=== PATIENT | female | born 1970 | race American Indian/Alaskan Native ===

== ENCOUNTER 2017-03-03 23:25 | Emergency (ER) | payer OTHER ==
[2017-03-04 00:33] LABS: Bilirubin,Urine NEG (Negative); Blood,Urine SM (Negative); Ketones,Urine NEG (Negative); Leukocyte Esterase,Urine TR (Negative); Mucus,Urine FEW /HPF; Nitrite,Urine NEG (Negative); Protein,Urine <15 mg/dL mg/dL (Negative); Urobilinogen,Urine < 2.0 mg/dL (<2.0)
[2017-03-04 00:46] LABS: Basophils % (Auto) 0.5 % (0.0-1.8); Eosinophils % (Auto) 0.9 % (0.0-4.3); Mean Corpuscular HGB Conc 33 % (30-34); Mean Corpuscular Hemoglobin 30 pg (28-32); Mean Corpuscular Volume 91 fl (79-97); Platelet Count 224 K/mm3 (140-440); Red Blood Count 3.65 M/mm3 (3.65-5.03); Red Cell Distribution Width 15.3 % (13.2-15.2); White Blood Count 5.5 K/mm3 (4.5-11.0)
[2017-03-04 01:33] LABS: Alanine Aminotransferase 12 units/L (7-56); Albumin 4.1 g/dL (3.9-5); Albumin/Globulin Ratio 1.4 %; Alkaline Phosphatase 47 units/L (35-129); Anion Gap 18 mmol/L; Bilirubin,Total 0.2 mg/dL (0.1-1.2); Blood Urea Nitrogen 12 mg/dL (7-17); Calcium 8.9 mg/dL (8.4-10.2); Carbon Dioxide 24 mmol/L (22-30); Chloride 102.8 mmol/L (98-107); Glucose 88 mg/dL (65-100); Lipase 23 units/L (13-60); Potassium 3.6 mmol/L (3.6-5.0); Sodium 141 mmol/L (137-145); Total Protein 7.1 g/dL (6.3-8.2)
[2017-03-04] MEDS ORDERED: PEPCID IV ONE (02:10)
[2017-03-04] MEDS ORDERED: BENADRYL IV ONE (02:12)
[2017-03-04] MEDS ORDERED: REGLAN IV ONE (02:12)
[2017-03-04] MEDS ORDERED: MORPHINE IV ONE (02:12)
--- NOTE | 2017-03-04 02:14 | Emergency Department Report ---
ED Abdominal Pain HPI - General Chief Complaint: Abdominal Pain Stated Complaint: ABD PAIN Time Seen by Provider: 03/04/17 01:43 Source: patient Mode of arrival: Ambulatory Limitations: No Limitations - History of Present Illness Initial Comments: Patient is a 46 year female with a history of a gastric sleeve 2 years ago presenting with multiple complaints. Patient reports headaches, nausea at times , intermittent in epigastric pain, intermittent swelling of her extremities. Out of all of her complaints patient reports that intermittent swelling is what brought her to the ER today. Patient reports she is taking her mother's "water pill" medication in the past which gave her relief.She also reports she has been taking multiple doses of Zantac, Gas-X for relief. Otherwise patient has no other complaints. Otherwise no fevers, chills, vomiting, shortness of breath , chest pain, travel, trauma, or sick contacts. Patient reports she has not followed up with her bariatric surgeon in a long time. Severity scale (0 -10): 7 - Related Data Home Medications Medication Instructions Recorded Confirmed Last Taken No Known Home Medications [No 03/04/17 03/04/17 Unknown Reported Home Medications] Allergies Allergy/AdvReac Type Severity Reaction Status Date / Time No Known Allergies Allergy Unverified 03/04/17 00:00 ED Review of Systems ROS: Stated complaint: ABD PAIN Other details as noted in HPI Comment: All other systems reviewed and negative ED Past Medical Hx - Past Medical History Hx Hypertension: Yes - Surgical History Hx Cholecystectomy: Yes Additional Surgical History: Gastric sleeve, , Tubal ligation, - Social History Smoking Status: Current Every Day Smoker Substance Use Type: Alcohol - Medications Home Medications: Home Medications Medication Instructions Recorded Confirmed Last Taken Type No Known Home Medications [No 03/04/17 03/04/17 Unknown History Reported Home Medications] ED Physical Exam - General Limitations: No Limitations General appearance: alert, in no apparent distress - Head Head exam: Present: atraumatic, normocephalic - Eye Eye exam: Present: normal appearance - ENT ENT exam: Present: mucous membranes moist - Neck Neck exam: Present: normal inspection - Respiratory Respiratory exam: Present: normal lung sounds bilaterally. Absent: respiratory distress - Cardiovascular Cardiovascular Exam: Present: regular rate, normal rhythm. Absent: systolic murmur, diastolic murmur, rubs, gallop - GI/Abdominal GI/Abdominal exam: Present: soft, tenderness, normal bowel sounds. Absent: distended, guarding, rebound, rigid - Extremities Exam Extremities exam: Present: normal inspection - Back Exam Back exam: Present: normal inspection - Neurological Exam Neurological exam: Present: alert, oriented X3 - Psychiatric Psychiatric exam: Present: normal affect, normal mood - Skin Skin exam: Present: warm, dry, intact, normal color. Absent: rash ED Course Vital Signs 03/03/17 03/04/17 03/04/17 23:45 00:28 00:30 Temperature 98.1 F Pulse Rate 56 L 48 L Respiratory 20 19 Rate Blood Pressure 174/102 135/86 Blood Pressure 174/102 [Left] O2 Sat by Pulse 99 100 99 Oximetry 03/04/17 03/04/17 03/04/17 00:35 00:41 00:45 Temperature Pulse Rate 44 L 46 L 50 L Respiratory 17 12 13 Rate Blood Pressure 135/86 135/86 135/86 Blood Pressure [Left] O2 Sat by Pulse 99 99 98 Oximetry 03/04/17 03/04/17 03/04/17 00:48 00:51 01:07 Temperature Pulse Rate 46 L 46 L Respiratory 16 16 18 Rate Blood Pressure 135/81 135/81 Blood Pressure [Left] O2 Sat by Pulse 99 99 Oximetry 03/04/17 03/04/17 03/04/17 01:11 01:15 01:21 Temperature Pulse Rate 46 L 46 L 45 L Respiratory 12 10 L 13 Rate Blood Pressure 135/81 135/81 148/77 Blood Pressure [Left] O2 Sat by Pulse 99 99 99 Oximetry 03/04/17 03/04/17 03/04/17 01:25 01:30 01:35 Temperature Pulse Rate 45 L 52 L 47 L Respiratory 12 15 16 Rate Blood Pressure 148/77 135/85 135/85 Blood Pressure [Left] O2 Sat by Pulse 99 99 99 Oximetry 03/04/17 03/04/17 03/04/17 01:41 01:45 01:51 Temperature Pulse Rate 44 L 51 L 50 L Respiratory 8 L 15 15 Rate Blood Pressure 135/81 135/81 106/55 Blood Pressure [Left] O2 Sat by Pulse 98 98 98 Oximetry 03/04/17 03/04/17 03/04/17 01:55 02:00 02:05 Temperature Pulse Rate 51 L 50 L 51 L Respiratory 14 15 14 Rate Blood Pressure 106/55 102/52 102/52 Blood Pressure [Left] O2 Sat by Pulse 98 99 99 Oximetry 03/04/17 03/04/17 03/04/17 02:11 02:15 02:21 Temperature Pulse Rate 46 L 52 L 56 L Respiratory 16 17 19 Rate Blood Pressure 102/52 102/52 114/62 Blood Pressure [Left] O2 Sat by Pulse 99 97 100 Oximetry 03/04/17 02:25 Temperature Pulse Rate 61 Respiratory 19 Rate Blood Pressure 114/62 Blood Pressure [Left] O2 Sat by Pulse 96 Oximetry ED Medical Decision Making - Lab Data Result diagrams: 03/04/17 00:36 03/04/17 00:36 - EKG Data -: EKG Interpreted by Me ([id number]) EKG shows normal: sinus rhythm, axis (normal), intervals (QTC:451ms ), ST-T waves ((-)ST T changes, No stemi) Rate: bradycardia (49 bpm) - Radiology Data Radiology results: report reviewed ABD xray: concern for air fluid levels, ordered CT a/p CT a/p: No acute intra-abdominal pathology Critical care attestation.: If time is entered above; I have spent that time in minutes in the direct care of this critically ill patient, excluding procedure time. ED Disposition Clinical Impression: Abdominal pain, Edema Disposition: DISCHARGED TO HOME OR SELFCARE Is pt being admited?: No Condition: Stable Instructions: Abdominal Pain (ED), Leg Edema (ED) Referrals: PRIMARY CARE, [Primary Care Provider] - 3-5 Days
[2017-03-04] MEDS ORDERED: BENTYL PO ONE (02:17)
--- NOTE | 2017-03-04 03:59 | XRay Report ---
FINAL REPORT PROCEDURE: XR ABDOMEN 2V TECHNIQUE: Abdominal series, including supine and upright AP views. HISTORY: abdp ain COMPARISON: No prior studies are available for comparison. FINDINGS: Bowel gas pattern:Nonobstructive . Masses or calcifications:There has been previous cholecystectomy. Bony structures:No significant abnormality . Pneumoperitoneum:None . Other:No significant findings . IMPRESSION: No acute abnormality.
--- NOTE | 2017-03-04 05:09 | Cat Scan Report ---
FINAL REPORT PROCEDURE: CT ABDOMEN PELVIS W CON TECHNIQUE: Computerized axial tomography of the abdomen and pelvis was performed after the IV injection of iodinated nonionic contrast. HISTORY: epigastric pain , swelling both lower legs suzette r/o obstruction COMPARISON: No prior studies are available for comparison. FINDINGS: Visualized lower thorax: No significant abnormality. Liver: Normal size and attenuation. Spleen: Normal size and attenuation. Gallbladder and biliary system: The gallbladder is absent. No dilatation of the biliary ductal system.. Pancreas: Normal. Adrenals: Normal. Kidneys: The stomach is normal. No hydronephrosis. No renal stones or masses. GI tract: The stomach is normal. The small bowel has a normal caliber. No obstruction, ileus or enteritis. The cecum and colon are normal.. Lymph nodes and mesentery: Normal. Vasculature: Normal. Bladder: Normal. Reproductive organs: The uterus is normal. There is a 2 centimeters cyst on the right ovary.. Peritoneum: No free fluid. Musculoskeletal structures: No significant abnormality. Other: None. IMPRESSION: No evidence of intestinal or urinary tract obstruction. No ileus or enteritis. Previous cholecystectomy.
[2017-03-04 05:19] VITALS: BP 136/81
--- NOTE | 2017-03-04 07:27 | XRay Report ---
CHEST 2 VIEWS INDICATION: Difficulty breathing. COMPARISON: None similar at this institution. FINDINGS: PA and lateral chest radiographs demonstrate borderline cardiomegaly. Normal mediastinal and hilar contours. Clear lungs. Mild right hemidiaphragmatic scalloping and focal anterior eventration. Multiple upper abdominal surgical clips. Upper thoracic levoscoliosis apex about T3. Mild multilevel thoracic spine degenerative spurring. CONCLUSION: No acute chest process with various incidental findings, as above. Thank you for the opportunity to participate in this patient's care.
== END 2017-03-04 05:38 | disposition home or self-care (01) ==
LOC: ED 23:25
DX: R10.13 Epigastric pain (principal); R60.9 Edema, unspecified; I10 Essential (primary) hypertension; F17.200 Nicotine dependence, unspecified, uncomplicated; Z90.49 Acquired absence of other specified parts of digestive tract; Z98.51 Tubal ligation status
CPT/HCPCS: 36415; 71020; 74020; 74177; 80053; 81001; 83690; 83880; 85025; 93005; 93010; 96374; 96375; 99285; J1200; J2270; J2765; Q9967

== ENCOUNTER 2019-08-20 13:49 | Emergency (ER) | payer SELFPAY ==
[2019-08-20 14:28] LABS: Basophils % (Auto) 0.3 % (0.0-1.8); Eosinophils % (Auto) 0.7 % (0.0-4.3); Hematocrit 37.6 % (30.3-42.9); Hemoglobin 12.5 gm/dl (10.1-14.3); Lymphocytes # (Auto) 3.2 K/mm3 (1.2-5.4); Lymphocytes % (Auto) 46.2 % (13.4-35.0); Mean Corpuscular HGB Conc 33 % (30-34); Mean Corpuscular Volume 90 fl (79-97); Monocytes # (Auto) 0.6 K/mm3 (0.0-0.8); Monocytes % (Auto) 8.8 % (0.0-7.3); Platelet Count 263 K/mm3 (140-440); Red Blood Count 4.18 M/mm3 (3.65-5.03); Red Cell Distribution Width 14.8 % (13.2-15.2)
[2019-08-20 14:39] LABS: BUN/Creatinine Ratio 26; Blood Urea Nitrogen 13 mg/dL (7-17); Calcium 9.1 mg/dL (8.4-10.2); Hemolysis Index 13
--- NOTE | 2019-08-20 15:22 | Emergency Department Report ---
ED General Adult HPI - General Chief complaint: Overdose Stated complaint: OVERDOSE Time Seen by Provider: 08/20/19 14:52 Source: patient Mode of arrival: Ambulatory Limitations: Altered Mental Status - History of Present Illness Initial comments: The patient presents to the emergency department for an intentional overdose. Patient has a history of bipolar and PTSD and states she is no longer taking medications. Patient states that she is going through a lot currently and is depressed. Patient states on Tuesday she took 15 Advil PMs in an attempt to kill herself. Patient states after taking the medication she controlled from [facility] to [facility] to visit her great-grandmother's grave site. Patient states she's been living out of her car since that time and this morning decided to take 5 more tablets of Advil PM. Patient states that she called the crisis center and had her spouse come to pick her up from [place], [place]. -: Gradual Severity scale (0 -10): 0 Consistency: constant Improves with: none Worsens with: none Associated Symptoms: denies other symptoms Treatments Prior to Arrival: none - Related Data Home Medications Medication Instructions Recorded Confirmed Last Taken No Known Home Medications [No 03/04/17 08/20/19 Unknown Reported Home Medications] Allergies Allergy/AdvReac Type Severity Reaction Status Date / Time No Known Allergies Allergy Unverified 03/04/17 00:00 ED Review of Systems ROS: Stated complaint: OVERDOSE Other details as noted in HPI Comment: All other systems reviewed and negative Constitutional: denies: chills, fever Eyes: denies: eye pain, eye discharge, vision change ENT: denies: ear pain, throat pain Respiratory: denies: cough, shortness of breath, wheezing Cardiovascular: denies: chest pain, palpitations Endocrine: no symptoms reported Gastrointestinal: denies: abdominal pain, nausea, diarrhea Genitourinary: denies: urgency, dysuria, discharge Musculoskeletal: denies: back pain, joint swelling, arthralgia Skin: denies: rash, lesions Neurological: denies: headache, weakness, paresthesias Psychiatric: suicidal thoughts. denies: anxiety, depression, auditory hallucinations, visual hallucinations, homicidal thoughts Hematological/Lymphatic: denies: easy bleeding, easy bruising ED Past Medical Hx - Past Medical History Previous Medical History?: Yes Hx Hypertension: Yes - Surgical History Past Surgical History?: Yes Hx Cholecystectomy: Yes Additional Surgical History: Gastric sleeve, , Tubal ligation, - Social History Smoking Status: Current Every Day Smoker Substance Use Type: Alcohol - Medications Home Medications: Home Medications Medication Instructions Recorded Confirmed Last Taken Type No Known Home Medications [No 03/04/17 08/20/19 Unknown History Reported Home Medications] ED Physical Exam - General Limitations: Altered Mental Status General appearance: alert, in no apparent distress - Head Head exam: Present: atraumatic, normocephalic - Eye Eye exam: Present: normal appearance, PERRL, EOMI - ENT ENT exam: Present: mucous membranes moist - Neck Neck exam: Present: normal inspection - Respiratory Respiratory exam: Present: normal lung sounds bilaterally. Absent: respiratory distress - Cardiovascular Cardiovascular Exam: Present: regular rate, normal rhythm. Absent: systolic murmur, diastolic murmur, rubs, gallop - GI/Abdominal GI/Abdominal exam: Present: soft, normal bowel sounds. Absent: distended, tenderness - Extremities Exam Extremities exam: Present: normal inspection - Back Exam Back exam: Present: normal inspection - Neurological Exam Neurological exam: Present: alert, oriented X3, CN II-XII intact. Absent: motor sensory deficit - Psychiatric Psychiatric exam: Present: normal affect, normal mood, depressed, suicidal ideation. Absent: manic, homicidal ideation - Skin Skin exam: Present: warm, dry, intact, normal color. Absent: rash ED Course Vital Signs 08/20/19 08/20/19 08/20/19 13:59 14:08 14:15 Temperature 98.7 F Pulse Rate 76 83 Respiratory 17 18 Rate Blood Pressure 156/69 Blood Pressure 184/102 [Left] O2 Sat by Pulse 97 98 99 Oximetry 08/20/19 08/20/19 08/20/19 14:18 14:30 14:45 Temperature Pulse Rate 57 L 57 L Respiratory 10 L 18 Rate Blood Pressure 202/112 111/59 93/54 Blood Pressure [Left] O2 Sat by Pulse 97 99 96 Oximetry 08/20/19 08/20/19 08/20/19 15:00 15:15 15:31 Temperature Pulse Rate 54 L 56 L 56 L Respiratory 18 19 20 Rate Blood Pressure 100/55 114/61 107/64 Blood Pressure [Left] O2 Sat by Pulse 96 98 99 Oximetry 08/20/19 08/20/19 08/20/19 16:35 18:40 21:05 Temperature Pulse Rate 55 L 74 60 Respiratory 19 17 20 Rate Blood Pressure Blood Pressure 145/90 137/62 124/58 [Left] O2 Sat by Pulse 100 100 98 Oximetry 08/20/19 22:30 Temperature Pulse Rate 56 L Respiratory 17 Rate Blood Pressure Blood Pressure 133/77 [Left] O2 Sat by Pulse 100 Oximetry ED Medical Decision Making - Lab Data Result diagrams: 08/20/19 14:07 08/20/19 14:07 Lab Results 08/20/19 08/20/19 08/20/19 Range/Units 14:07 14:07 14:07 WBC (4.5-11.0) K/mm3 RBC (3.65-5.03) M/mm3 Hgb (10.1-14.3) gm/dl Hct (30.3-42.9) % MCV (79-97) fl MCH (28-32) pg MCHC (30-34) % RDW (13.2-15.2) % Plt Count (140-440) K/mm3 Lymph % (Auto) (13.4-35.0) % [place] % (Auto) (0.0-7.3) % Eos % (Auto) (0.0-4.3) % Baso % (Auto) (0.0-1.8) % Lymph # (1.2-5.4) K/mm3 [place] # (0.0-0.8) K/mm3 Eos # (0.0-0.4) K/mm3 Baso # (0.0-0.1) K/mm3 Seg Neutrophils % (40.0-70.0) % Seg Neutrophils # (1.8-7.7) K/mm3 Sodium 139 (137-145) mmol/L Potassium 3.6 (3.6-5.0) mmol/L Chloride 103.9 (98-107) mmol/L Carbon Dioxide 20 L (22-30) mmol/L Anion Gap 19 mmol/L BUN 13 (7-17) mg/dL Creatinine 0.5 L (0.7-1.2) mg/dL Estimated GFR > 60 ml/min BUN/Creatinine Ratio 26 % Glucose 102 H (65-100) mg/dL Calcium 9.1 (8.4-10.2) mg/dL Urine Color (Yellow) Urine Turbidity (Clear) Urine pH (5.0-7.0) Ur Specific [place] (1.003-1.030) Urine Protein (Negative) mg/dL Urine Glucose (UA) (Negative) mg/dL Urine Ketones (Negative) mg/dL Urine Blood (Negative) Urine Nitrite (Negative) Urine Bilirubin (Negative) Urine Urobilinogen (<2.0) mg/dL Ur Leukocyte Esterase (Negative) Urine WBC (Auto) (0.0-6.0) /HPF Urine RBC (Auto) (0.0-6.0) /HPF U Epithel Cells (Auto) (0-13.0) /HPF Urine Mucus /HPF Salicylates < 0.3 L (2.8-20.0) mg/dL Urine Opiates Screen Urine Methadone Screen Acetaminophen < 5.0 L (10.0-30.0) ug/mL Ur Barbiturates Screen Ur Phencyclidine Scrn Ur Amphetamines Screen U Benzodiazepines Scrn Urine Cocaine Screen U Marijuana (THC) Screen Drugs of Abuse Note Plasma/Serum Alcohol (0-0.07) % 08/20/19 08/20/19 08/20/19 Range/Units 14:07 14:07 Unknown WBC 6.8 (4.5-11.0) K/mm3 RBC 4.18 (3.65-5.03) M/mm3 Hgb 12.5 (10.1-14.3) gm/dl Hct 37.6 (30.3-42.9) % MCV 90 (79-97) fl MCH 30 (28-32) pg MCHC 33 (30-34) % RDW 14.8 (13.2-15.2) % Plt Count 263 (140-440) K/mm3 Lymph % (Auto) 46.2 H (13.4-35.0) % [place] % (Auto) 8.8 H (0.0-7.3) % Eos % (Auto) 0.7 (0.0-4.3) % Baso % (Auto) 0.3 (0.0-1.8) % Lymph # 3.2 (1.2-5.4) K/mm3 [place] # 0.6 (0.0-0.8) K/mm3 Eos # 0.0 (0.0-0.4) K/mm3 Baso # 0.0 (0.0-0.1) K/mm3 Seg Neutrophils % 44.0 (40.0-70.0) % Seg Neutrophils # 3.0 (1.8-7.7) K/mm3 Sodium (137-145) mmol/L Potassium (3.6-5.0) mmol/L Chloride (98-107) mmol/L Carbon Dioxide (22-30) mmol/L Anion Gap mmol/L BUN (7-17) mg/dL Creatinine (0.7-1.2) mg/dL Estimated GFR ml/min BUN/Creatinine Ratio % Glucose (65-100) mg/dL Calcium (8.4-10.2) mg/dL Urine Color Yellow (Yellow) Urine Turbidity Slightly-cloudy (Clear) Urine pH 5.0 (5.0-7.0) Ur Specific [place] 1.034 H (1.003-1.030) Urine Protein <15 mg/dl (Negative) mg/dL Urine Glucose (UA) Neg (Negative) mg/dL Urine Ketones Neg (Negative) mg/dL Urine Blood Neg (Negative) Urine Nitrite Neg (Negative) Urine Bilirubin Neg (Negative) Urine Urobilinogen < 2.0 (<2.0) mg/dL Ur Leukocyte Esterase Neg (Negative) Urine WBC (Auto) 1.0 (0.0-6.0) /HPF Urine RBC (Auto) 7.0 (0.0-6.0) /HPF U Epithel Cells (Auto) 4.0 (0-13.0) /HPF Urine Mucus 3+ /HPF Salicylates (2.8-20.0) mg/dL Urine Opiates Screen Urine Methadone Screen Acetaminophen (10.0-30.0) ug/mL Ur Barbiturates Screen Ur Phencyclidine Scrn Ur Amphetamines Screen U Benzodiazepines Scrn Urine Cocaine Screen U Marijuana (THC) Screen Drugs of Abuse Note Plasma/Serum Alcohol < 0.01 (0-0.07) % 08/20/19 Range/Units Unknown WBC (4.5-11.0) K/mm3 RBC (3.65-5.03) M/mm3 Hgb (10.1-14.3) gm/dl Hct (30.3-42.9) % MCV (79-97) fl MCH (28-32) pg MCHC (30-34) % RDW (13.2-15.2) % Plt Count (140-440) K/mm3 Lymph % (Auto) (13.4-35.0) % [place] % (Auto) (0.0-7.3) % Eos % (Auto) (0.0-4.3) % Baso % (Auto) (0.0-1.8) % Lymph # (1.2-5.4) K/mm3 [place] # (0.0-0.8) K/mm3 Eos # (0.0-0.4) K/mm3 Baso # (0.0-0.1) K/mm3 Seg Neutrophils % (40.0-70.0) % Seg Neutrophils # (1.8-7.7) K/mm3 Sodium (137-145) mmol/L Potassium (3.6-5.0) mmol/L Chloride (98-107) mmol/L Carbon Dioxide (22-30) mmol/L Anion Gap mmol/L BUN (7-17) mg/dL Creatinine (0.7-1.2) mg/dL Estimated GFR ml/min BUN/Creatinine Ratio % Glucose (65-100) mg/dL Calcium (8.4-10.2) mg/dL Urine Color (Yellow) Urine Turbidity (Clear) Urine pH (5.0-7.0) Ur Specific [place] (1.003-1.030) Urine Protein (Negative) mg/dL Urine Glucose (UA) (Negative) mg/dL Urine Ketones (Negative) mg/dL Urine Blood (Negative) Urine Nitrite (Negative) Urine Bilirubin (Negative) Urine Urobilinogen (<2.0) mg/dL Ur Leukocyte Esterase (Negative) Urine WBC (Auto) (0.0-6.0) /HPF Urine RBC (Auto) (0.0-6.0) /HPF U Epithel Cells (Auto) (0-13.0) /HPF Urine Mucus /HPF Salicylates (2.8-20.0) mg/dL Urine Opiates Screen Presumptive negative Urine Methadone Screen Presumptive negative Acetaminophen (10.0-30.0) ug/mL Ur Barbiturates Screen Presumptive negative Ur Phencyclidine Scrn Presumptive negative Ur Amphetamines Screen Presumptive negative U Benzodiazepines Scrn Presumptive negative Urine Cocaine Screen Presumptive negative U Marijuana (THC) Screen Presumptive negative Drugs of Abuse Note Disclamer Plasma/Serum Alcohol (0-0.07) % - Medical Decision Making 1013 applied medically cleared awaiting mental health eval Critical care attestation.: If time is entered above; I have spent that time in minutes in the direct care of this critically ill patient, excluding procedure time. ED Disposition Clinical Impression: Suicide attempt, Misuse of [id number] medications Disposition: [id number]/TX-65 PSY HOSP/PSY UNIT Is pt being admited?: No Does the pt Need Aspirin: No Condition: Stable Referrals: PRIMARY CARE, [Primary Care Provider] - 3-5 Days
[2019-08-20 17:05] LABS: Bilirubin,Urine NEG (Negative); Blood,Urine NEG (Negative); Color,Urine Yellow (Yellow); Mucus,Urine 3+ /HPF; Protein,Urine <15 mg/dL mg/dL (Negative); Urobilinogen,Urine < 2.0 mg/dL (<2.0)
[2019-08-20 17:13] LABS: Amphetamine Screen,Urine PRESUMPTIVE NEGATIVE; Benzodiazepines Screen,Urine PRESUMPTIVE NEGATIVE; Cannabinoid Screen,Urine PRESUMPTIVE NEGATIVE; Cocaine Screen,Urine PRESUMPTIVE NEGATIVE; Methadone Screen,Urine PRESUMPTIVE NEGATIVE; Opiate Screen,Urine PRESUMPTIVE NEGATIVE
--- NOTE | 2019-08-21 10:51 | Consultation ---
History of Present Illness - Reason for Consult Consult date: 08/21/19 Reason for consult: Mental Health Evaluation Requesting physician: ADELA BEAN - Chief Complaint Chief complaint: "I have no reason to live at this time" - History of Present Psychiatric Illness 48 y.o. AA female who presented to the ER for SI's. Today the patient was calm, but sad during the assessment. She stated that she have experienced a lot 'stress" lately. She stated that her son was convicted of a serious crime recently, her grandchild , and her relationship just ended. She stated that she have been "battling depression" for years. She continue to endorse SI's, but would not confirm or deny a suicide plan. She stated she have been to a mental health facility for depression and "possibly" a suicide attempt. She rate her depression 8/10, with 10 being the worse. She denies HI's and AVH's. She denies a poor appetite, but acknowledged erratic sleep. The patient stated that she's living her care at this time. She denies recreational drug use. She stated that her alcohol consumption (etoh) have increased. Medications and Allergies Allergies Allergy/AdvReac Type Severity Reaction Status Date / Time No Known Allergies Allergy Unverified 03/04/17 00:00 Home Medications Medication Instructions Recorded Confirmed Last Taken Type No Known Home Medications [No 03/04/17 08/20/19 Unknown History Reported Home Medications] Past psychiatric history - Past Medical History Past Medical History: hypertension Past Surgical History: - past Psychiatric treatment and history psychiatric treatment history: Inpatient psy services in the past. Denies a fam psy hx. - Social History Social history: lives with family Mental Status Exam - Vital signs Last Vital Signs Temp 98.1 F 08/21/19 07:00 Pulse 51 L 08/21/19 07:00 Resp 21 08/21/19 07:00 BP 118/67 08/21/19 07:00 Pulse Ox 97 08/21/19 07:00 - Exam Narrative exam: MSE: Appearance: calm, cooperative Behavior: regular eye contact Speech: regular rate and loud tone Mood: "depressed and sad" Affect: flat Thought Process: circumstantial Thought Content: denies HI's with AVH's Motor Activity: ambulatory Cognition: A/Ox 3 Insight: fair Judgment: poor Results Result Diagrams: 08/20/19 14:07 08/20/19 14:07 Abnormal lab results 08/20/19 08/20/19 08/20/19 Range/Units 14:07 14:07 14:07 Lymph % (Auto) (13.4-35.0) % [place] % (Auto) (0.0-7.3) % Carbon Dioxide 20 L (22-30) mmol/L Creatinine 0.5 L (0.7-1.2) mg/dL Glucose 102 H (65-100) mg/dL Ur Specific [place] (1.003-1.030) Salicylates < 0.3 L (2.8-20.0) mg/dL Acetaminophen < 5.0 L (10.0-30.0) ug/mL 08/20/19 08/20/19 Range/Units 14:07 Unknown Lymph % (Auto) 46.2 H (13.4-35.0) % [place] % (Auto) 8.8 H (0.0-7.3) % Carbon Dioxide (22-30) mmol/L Creatinine (0.7-1.2) mg/dL Glucose (65-100) mg/dL Ur Specific [place] 1.034 H (1.003-1.030) Salicylates (2.8-20.0) mg/dL Acetaminophen (10.0-30.0) ug/mL All other labs normal. Assessment and Plan Assessment and plan: Impression: MDD. Hx of Alcohol Abuse. Complicated Grieving. Today the patient was calm, but sad during the assessment. DDx: Bipolar DO Recommendation/Plan: Continue 1013 and start Lexapro 5 mg PO daily for depression and Melatonin 5 mg PO HS for sleep. Discussed possible suicidality/medication induced demetria with the patient reference Leaxapro, she verbalized understanding. Line of sight ordered, the patient assigned nurse was informed. Dispo: The patient was referred to inpatient psy services. Will staff with Dr Bebeto Goodwin.
[2019-08-21] MEDS: ESCITALOPRAM 10 MG TAB PO SCH (12:55)
[2019-08-21] MEDS: MELATONIN 5 MG TAB PO SCH (22:00)
[2019-08-22] MEDS: ESCITALOPRAM 10 MG TAB PO SCH (11:00)
--- NOTE | 2019-08-22 14:14 | Progress Note ---
Subjective - Reason for Consult Consult date: 08/22/19 Reason for consult: Psychiatric Follow-up Evaluation - Chief Complaint Chief complaint: "I feel better" Patient is a 48 y.o. AA female who presented to the ER for SI's. Today the patient is calm and cooperative during the assessment. She reports financial and family stressors. She continues to have depressed mood and racing thoughts. Per patient her symptoms have improved. Today, she has more clarity. Recently, patient found out that she has a 2nd interview with [facility] in [place], [place] on Saturday August 24, 2019 at 4:30 pm. She denies SI/HI's, A/VH's, and delusions. Mental Status Exam - Vital signs Last Vital Signs Temp 98.2 F 08/22/19 09:40 Pulse 50 L 08/22/19 09:40 Resp 18 08/22/19 09:40 BP 138/76 08/22/19 09:40 Pulse Ox 98 08/22/19 09:40 - Exam Narrative exam: MSE: Appearance: calm, cooperative Behavior: regular eye contact Speech: regular rate and loud tone Mood: "I feel better" ; less depressed/anxious Affect: appropriate Thought Process: circumstantial Thought Content: denies SI/HI's, AVH's, and delusions Motor Activity: ambulatory Cognition: A/O x 3 Insight: fair Judgment: poor Assessment and Plan Impression: MDD. Hx of Alcohol Abuse. Complicated Grieving. Today the patient is calm and cooperative during the assessment. She is more hopeful being that she has a job interview on Tuesday. Appears less depressed and anxious. She denies SI/HI's, A/VH's, and delusions. DDx: Bipolar DO Recommendation/Plan: 1. Continue 1013. Will re-evaluate 1013 in 24 hours. 2. Continue Lexapro 5 mg PO daily for depression and Melatonin 5 mg PO HS for sleep. Discussed possible suicidality/medication induced demetria with the patient reference Lianaxaprjosue, she verbalized understanding. Discontinued line of sight. Disposition: If patient's 1013 is rescinded, she will follow-up at the [facility]. Will staff with Dr. Bebeto Goodwin.
[2019-08-22] MEDS: MELATONIN 5 MG TAB PO SCH (23:44)
[2019-08-23] MEDS: ESCITALOPRAM 10 MG TAB PO SCH (11:15)
--- NOTE | 2019-08-23 12:12 | Progress Note ---
Subjective - Reason for Consult Consult date: 08/23/19 Reason for consult: Psychiatry Follow-up - Chief Complaint Chief complaint: "I will do better" Patient is a 48 y.o. AA female who presented to the ER for SI's. Today the patient was calm and cooperative during the assessment. She is adamant that her actions prior to her arrival to the ER was unsafe. Per collateral information from her daughter Kb Maria at [phone], she stated that her mother was "stressed" prior to coming to the ER. She stated that she's the patient's support system along with other family members. She stated that she plan to attend therapy sessions with her mother. The patient denies SI/HI's and AVH's. She denies any side effects from her medication. Mental Status Exam - Vital signs Last Vital Signs Temp 98.3 F 08/23/19 01:00 Pulse 60 08/23/19 01:00 Resp 16 08/23/19 01:00 BP 107/57 08/23/19 01:00 Pulse Ox 98 08/23/19 01:00 - Exam Narrative exam: MSE: Appearance: calm, cooperative Behavior: regular eye contact Speech: regular rate and loud tone Mood: "okay" Affect: congruent to mood Thought Process: linear Thought Content: denies SI/HI's with AVH's Motor Activity: ambulatory Cognition: A/Ox 3 Insight: appropriate Judgment: appropriate Assessment and Plan Impression: MDD. Hx of Alcohol Abuse. Complicated Grieving. Today the patient was calm and cooperative during the assessment. The patient is no threat to self. DDx: Bipolar DO Suicide Risk Assessment I. This screening and assessment is based on information collected from the following sources: II. SUICIDE RISK SCREENING (within last 30 days): A.) Suicidal thoughts/behaviors: Yes SUICIDE RISK ASSESSMENT III. FACTORS THAT INCREASE RISK: A.) Demographic and Substance Use Factors: No B.) Current/Recent Factors (within past 3 months): Psychosocial/Environmental Factors: Life Stressors Physical Illness: None Cognitive/Psychological Factors: None C.) Historical Factors: None D.) Diagnostic/Symptom/Treatment Factors: None E.) Acute Risk Factor Severity (DESC; MILD/MOD/SEVERE): Mild Other factors for this individual that increase risk: None IV. FACTORS THAT DECREASE RISK: Resilience/Protective Factors: Patient want to decrease her stress Other factors for this individual that decrease risk: Patient denies a desire to harm self V. Clinician's Formulation of Risk and Determination of level of Care: This is a 48 y.o. AA female who ingested several Advil pills a couple of days prior to coming to the ER. She stated that she was "stressed" and wante dto kill herself. The patient has a hx of depression. She stated that her actions was unsafe. She stated that she will follow-up with outpatient psy services once discharged. She has become insightful about how to better address her current issues. The patient is not impaired by substance at this time. She is able to take care of her ADLs and is not at imminent risk of harm to self or others. Consequently, it is the opinion of the treatment team that the patient is at low risk of suicide and does not meet criteria to continue an involuntary psychiatric hold. Estimation of Imminent Risk: Low due to the above explanation. Determination of Level of Care based on Suicide Risk: Outpatient follow-up. Narrative description of clinical reasoning. Given the fact that the patient is willing to engage in outpatient psy services care and has a supportive network (family), it is reasonable to expect that the patient will seek services. At this current time, she is not impulsive and does not have any risk factors to increase the likelihood of her impulsive behavior. Therefore, it is reasonable to expect that the patient will engage in outpatient psy services which will reduce further unsafe behaviors. . Plan and Interventions based on Suicide Risk: This patient will likely be stepped down to an outpatient mental health center in the community upon discharge and follow-up within 7 days of her discharge from the hospital. VII. Discharge/After Hours Support Plan: Patient can return back to the ER, call 911 or crisis line if symptoms of depression, anxiety, suicidality return. Recommendation/Plan: Rescind 1013. Continue Lexapro 5 mg PO daily for depression. Discussed possible suicidality/medication induced demetria with the patient reference Leaxapro, she verbalized understanding. Discussed generalized coping skill with the patient, she verbalized understanding. Safety Contract completed with the patient Dispo: The patient can follow up with [facility] for outpatient psy services. Will staff with Dr Bebeto Goodwin.
[2019-08-23 12:58] VITALS: BP 157/86
== END 2019-08-23 12:59 | disposition home or self-care (01) ==
LOC: EEVIPCON 13:49 → ED 13:49
DX: F55.8 Abuse of other non-psychoactive substances (principal); F31.9 Bipolar disorder, unspecified; F43.10 Post-traumatic stress disorder, unspecified; I10 Essential (primary) hypertension; F17.200 Nicotine dependence, unspecified, uncomplicated; Z90.49 Acquired absence of other specified parts of digestive tract; Z98.51 Tubal ligation status; Z98.84 Bariatric surgery status
CPT/HCPCS: 36415; 80048; 80307; 80320; 81001; 85025; 93005; 93010; 99284; G0480